=== PATIENT | female | born 1965 | race African-American/Black ===

== ENCOUNTER 2016-06-11 12:48 | Emergency (ER) | payer OTHER ==
[~2016-06-11] VITALS: Ht 170.2 cm; Wt 92.1 kg
[~2016-06-11 12:48] MED LIST: BACTRIM DS TAB1 EACH PO; MEDROLDOSEPACK PO; NAPROSYN500 MG PO; NOHOMEMEDICATIONS; NORCO 5-325 TA1 EACH PO
[2016-06-11 12:54] VITALS: BP 128/87
[2016-06-11] MEDS ORDERED: BUPROPION HCL150 M1 PO (12:58)
[2016-06-11] MEDS ORDERED: TRAMADOL 50 MG50 MG PO (12:58)
[2016-06-11] MEDS ORDERED: TRAZODONE HCL50 MG PO (12:58)
[2016-06-11] MEDS ORDERED: ZANAFLEX4 MG PO (12:59)
[2016-06-11] MEDS ORDERED: TIZANIDINE HCL4 MG PO (13:55)
[2016-06-11] MEDS ORDERED: IBUPROFEN 600600 M1 PO (13:55)
== END 2016-06-11 14:05 | disposition home or self-care (01) ==
LOC: ER 12:48
DX: M54.5 Low back pain (principal); T14.8 Other injury of unspecified body region; F17.210 Nicotine dependence, cigarettes, uncomplicated; Z88.5 Allergy status to narcotic agent; Z90.49 Acquired absence of other specified parts of digestive tract; V49.9XXA Car occupant (driver) (passenger) injured in unspecified traffic accident, initial encounter; Y93.9 Activity, unspecified; Y92.9 Unspecified place or not applicable; Y99.9 Unspecified external cause status

== ENCOUNTER 2016-12-17 22:10 | Emergency (ER) | payer OTHER ==
[~2016-12-17] VITALS: Ht 170.2 cm; Wt 92.5 kg
[~2016-12-17 22:10] MED LIST changes: +BUPROPION HCL150 M1 PO; +IBUPROFEN 600600 M1 PO; +TIZANIDINE HCL4 MG PO; +TRAMADOL 50 MG50 MG PO; +TRAZODONE HCL50 MG PO; +ZANAFLEX4 MG PO
[2016-12-17 22:24] VITALS: BP 116/80
[2016-12-17] MEDS ORDERED: NAPROSYN500 MG PO (23:02)
== END 2016-12-17 23:15 | disposition home or self-care (01) ==
LOC: ER 22:10
DX: S29.012A Strain of muscle and tendon of back wall of thorax, initial encounter (principal); F17.210 Nicotine dependence, cigarettes, uncomplicated; Z90.49 Acquired absence of other specified parts of digestive tract; Z88.5 Allergy status to narcotic agent; V49.9XXA Car occupant (driver) (passenger) injured in unspecified traffic accident, initial encounter; Y93.89 Activity, other specified; Y92.89 Other specified places as the place of occurrence of the external cause; Y99.8 Other external cause status

== ENCOUNTER 2018-04-01 19:04 | Emergency (ER) | payer OTHER ==
[~2018-04-01] VITALS: Ht 170.2 cm; Wt 92.1 kg
[~2018-04-01 19:04] MED LIST changes: +MOBIC7.5 MG PO
[2018-04-01] MEDS ORDERED: NORCO 5-325 TA1 EACH PO (20:52)
[2018-04-01] MEDS ORDERED: PENICILLIN V P500 MG PO (20:52)
[2018-04-01 21:49] VITALS: BP 187/110
== END 2018-04-01 21:49 | disposition home or self-care (01) ==
LOC: ER 19:04
DX: M27.3 Alveolitis of jaws (principal); R51 Headache; F17.210 Nicotine dependence, cigarettes, uncomplicated; Z88.5 Allergy status to narcotic agent

== ENCOUNTER 2018-04-26 10:10 | Emergency (ER) | payer OTHER ==
[~2018-04-26] VITALS: Ht 170.2 cm; Wt 92.1 kg
[~2018-04-26 10:10] MED LIST changes: +PENICILLIN V P500 MG PO
[2018-04-26] MEDS ORDERED: IBUPROFEN 600600 M1 PO (10:17)
[2018-04-26] MEDS ORDERED: PENICILLIN V P500 MG PO (10:29)
[2018-04-26] MEDS ORDERED: NORCO 5-325 TA1 EACH PO (10:29)
[2018-04-26 10:54] VITALS: BP 163/101
== END 2018-04-26 10:54 | disposition home or self-care (01) ==
LOC: ER 10:10
DX: K08.89 Other specified disorders of teeth and supporting structures (principal); F17.210 Nicotine dependence, cigarettes, uncomplicated; Z88.5 Allergy status to narcotic agent; Z98.890 Other specified postprocedural states; Z90.49 Acquired absence of other specified parts of digestive tract

== ENCOUNTER 2018-07-08 08:11 | Emergency (ER) | payer OTHER ==
[~2018-07-08] VITALS: Ht 170.2 cm; Wt 87.5 kg
[2018-07-08] MEDS ORDERED: TYLENOL EXTRA500 MG PO (08:51)
[2018-07-08 09:03] VITALS: BP 110/63
== END 2018-07-08 09:10 | disposition home or self-care (01) ==
LOC: ER 08:11
DX: M79.645 Pain in left finger(s) (principal); Z90.49 Acquired absence of other specified parts of digestive tract; Z98.890 Other specified postprocedural states; F17.210 Nicotine dependence, cigarettes, uncomplicated; Z88.5 Allergy status to narcotic agent

== ENCOUNTER 2021-02-08 09:07 | Emergency (ER) | payer MEDICARE, OTHER ==
[~2021-02-08] VITALS: Ht 170.2 cm; Wt 88.5 kg
[2021-02-08 09:07] VITALS: BP 142/87
[~2021-02-08 09:07] MED LIST changes: +TYLENOL EXTRA500 MG PO
== END 2021-02-08 11:09 | disposition home or self-care (01) ==
LOC: ER 09:07
PROVIDERS: Emergency Medicine
DX: U07.1 COVID-19 (principal); J06.9 Acute upper respiratory infection, unspecified; F17.210 Nicotine dependence, cigarettes, uncomplicated; Z98.51 Tubal ligation status